=== PATIENT | female | born 1985 | race Caucasian/White ===

== ENCOUNTER → 2020-12-21 17:52 | Outpatient (CLI) | payer MEDICARE, MEDICAID, SELFPAY ==
--- NOTE | ~2020-12-21 | MR_ITS ---
EXAMINATION: MR knee RT wo con DATE: 12/21/2020 19:03 INDICATION: Right knee pain. Internal derangement. TECHNIQUE: Magnetic resonance imaging (MRI) of the right knee was performed without intravenous contr ast. Sequences included axial PD-weighted FS FSE, coronal PD-weighted FSE and PD-weighted FS FSE, sag ittal PD-weighted FSE, and sagittal T2-weighted FS FSE. COMPARISON: None. FINDINGS: Medial compartment: Medial meniscus is normal. The medial compartment cartilage is normal. Lateral compartment: The lateral meniscus is normal. The lateral compartment cartilage is normal. Patellofemoral compartment: The patellar cartilage is normal. The trochlear cartilage is normal. Ligaments and tendons: The anterior and posterior cruciate ligaments are normal. Medial collateral ligament and lateral jackie ateral ligament complex are normal. There is mild patellar tendinopathy. Fluid: There is a small knee joint effusion. There is a moderate-sized Haro's cyst. IMPRESSION: 1. Small knee joint effusion. 2. Moderate-sized Haro's cyst. Reviewed, dictated and finalized at location A.
== END ==
PROVIDERS: Visit Provider Internal Medicine
DX: M25.461 Effusion, right knee (principal); M71.21 Synovial cyst of popliteal space [Baker], right knee
CPT/HCPCS: 73721